=== PATIENT | male | born 1965 | race Caucasian/White ===

== ENCOUNTER 2016-03-22 09:31 | Emergency (ER) | payer MEDICAID | END 2016-03-22 10:23 | disposition home or self-care (01) | LOC: D.ER 09:31 | DX: M25.551 Pain in right hip (principal); I10 Essential (primary) hypertension; F17.200 Nicotine dependence, unspecified, uncomplicated ==

== ENCOUNTER 2016-08-12 22:34 | Emergency (ER) | payer MEDICAID | END 2016-08-13 00:15 | disposition home or self-care (01) | LOC: D.ER 22:34 | DX: M54.5 Low back pain (principal); G89.29 Other chronic pain ==